=== PATIENT | female | born 1960 | race African-American/Black ===

== ENCOUNTER 2017-01-02 05:43 | Emergency (ER) | payer OTHER ==
[~2017-01-02] VITALS: Ht 167.6 cm; Wt 88.8 kg
[~2017-01-02 05:43] MED LIST: BENZ100 PO; COZA100T PO; NIFE20CA PO; OSEL75 PO
[2017-01-02 05:50] VITALS: BP 155/85; PULSE 93; RESP 20; TEMP 98.6; O2SAT 100
--- NOTE | 2017-01-02 06:02 | PD ---
HPI Chief Complaint: fever Time Seen by Provider: 06:01 Travel History International Travel<30 days: No Contact w/Intl Traveler<30days: No Traveled to known affect area: No History of Present Illness HPI 56-year-old female came to the emergency room with history of sores inside her mouth, feeling hot and cold and body aches for past 2-3 days. Her MAXIMUM TEMPERATURE was 101. Patient was afebrile in triage. No history of nausea vomiting. No history of diarrhea. She has been trying to keep herself hydrated but the sores in her mouth are painful. 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 No history of cough. Patient has been taking Tamiflu but her symptoms have not improved. [facility] Past Medical History Narrative Medical List of her past medical, surgical, social and family history is reviewed from the nursing note. Blood Disorders: No Anxiety: Yes Depression: No Cancer: No Cardiovascular Problems: Yes Diminished Hearing: No Endocrine: No Gastrointestinal Disorders: Yes GERD: Yes Genitourinary: No Hypertension: Yes Immune Disorder: No Implanted Vascular Access Dvce: No Musculoskeletal: No Neurologic: No Psychiatric: Yes Reproductive: No Respiratory: No Menopausal: Yes Tubal Ligation: Yes Past Surgical History Cardiac Surgery: Yes (ABLATION FOR A FIB) Section: Yes Gynecologic Surgery: Yes (C-SECT AND TUBAL LIGATION) Other Surgery: Yes Social History Alcohol Use: No Tobacco Use: No Substance Use: No Allergies-Medications (Allergen,Severity, Reaction): Coded Allergies: No Known Allergies (Verified Allergy, Unknown, 01/02/17) Comments No known drug allergies Reported Meds & Prescriptions Reported Meds & Active Scripts Active Reported Nifedipine 20 Mg Cap 90 Mg PO DAILY Losartan (Losartan Potassium) 100 Mg Tab 100 Mg PO DAILY Narrative Medication List of her home medications reviewed from the nursing note. Review of Systems Except as stated in HPI: all other systems reviewed are Neg General / Constitutional: Positive: Fever, Chills HENT: Positive: Other (mouth sores) Musculoskeletal: Positive: Myalgias Physical Exam Narrative GENERAL: Awake, alert, moderate distress SKIN: Focused skin assessment warm/dry. HEAD: Atraumatic. Normocephalic. EYES: Pupils equal and round. No scleral icterus. No injection or drainage. ENT: No nasal bleeding or discharge. Dry mucous membrane and coated tongue. Vesicle on the mucosal surface of the upper lip adjacent to the incisor NECK: Trachea midline. No JVD. CARDIOVASCULAR: Regular rate and rhythm. No murmur appreciated. RESPIRATORY: No accessory muscle use. Clear to auscultation. Breath sounds equal bilaterally. GASTROINTESTINAL: Abdomen soft, non-tender, nondistended. Hepatic and splenic margins not palpable. MUSCULOSKELETAL: No obvious deformities. No clubbing. No cyanosis. No edema. NEUROLOGICAL: Awake and alert. No obvious cranial nerve deficits. Motor grossly within normal limits. Normal speech. PSYCHIATRIC: Appropriate mood and affect; insight and judgment normal. Data Data Last Documented VS Orders Orders Influenzae A/B Antigen (01/02/17 06:08) Complete Blood Count With Diff (01/02/17 06:08) Basic Metabolic Panel (Bmp) (01/02/17 06:08) Sodium Chlorid 0.9% 500 Ml Inj (Ns 500 M (01/02/17 06:15) Gvef-Awtt-Qnsm Liq (Magic Mouthwash Adul (01/02/17 09:00) Ed Discharge Order (01/02/17 06:54) Labs Laboratory Tests Test 01/02/17 06:24 White Blood Count 4.0 TH/MM3 Red Blood Count 4.41 MIL/MM3 Hemoglobin 11.9 GM/DL Hematocrit 36.8 % Mean Corpuscular Volume 83.7 FL Mean Corpuscular Hemoglobin 27.0 PG Mean Corpuscular Hemoglobin Concent 32.2 % Red Cell Distribution Width 15.5 % Platelet Count 276 TH/MM3 Mean Platelet Volume 7.8 FL Neutrophils (%) (Auto) 42.9 % Lymphocytes (%) (Auto) 44.4 % Monocytes (%) (Auto) 11.1 % Eosinophils (%) (Auto) 1.0 % Basophils (%) (Auto) 0.6 % Neutrophils # (Auto) 1.7 TH/MM3 Lymphocytes # (Auto) 1.9 TH/MM3 Monocytes # (Auto) 0.4 TH/MM3 Eosinophils # (Auto) 0.0 TH/MM3 Basophils # (Auto) 0.0 TH/MM3 CBC Comment DIFF FINAL Differential Comment Blood Urea Nitrogen 12 MG/DL Creatinine 0.84 MG/DL Random Glucose 108 MG/DL Calcium Level 8.8 MG/DL Sodium Level 137 MEQ/L Potassium Level 3.9 MEQ/L Chloride Level 103 MEQ/L Carbon Dioxide Level 24.7 MEQ/L Anion Gap 9 MEQ/L Estimat Glomerular Filtration Rate 85 ML/MIN MDM Medical Decision Making Medical Screen Exam Complete: Yes Emergency Medical Condition: Yes Medical Record Reviewed: Yes Differential Diagnosis Viral illness, hand foot and mouth disease, influenza, dehydration Narrative Course 6:13 AM awaiting for the blood test results. Patient is given 500 cc of fluid bolus. I will give her some Magic mouthwash as well. 6:53 AM blood test results of back and within acceptable limits. Influenza is negative. I will discharge her home. Procedures EKG Prior to Arrival: No Diagnosis Primary Impression: Viral illness Referrals: Primary Care Physician 3 days Departure Forms: Tests/Procedures, Work Release Enter return to work date: Jan 04, 2017 Additional Instructions: Return to the ER if the condition worsens or any other new concerns. Otherwise follow-up with your primary care next couple days. Drink lots of fluid to keep herself hydrated. Take ibuprofen for pain/fever. Med/Other Pt SpecificInfo: No Change to Meds Disposition: 01 DISCHARGE HOME Condition: Stable Jered García MD Jan 02, 2017 06:02
[2017-01-02] MEDS ORDERED: SODIUM CHLORID 0.9% 500 ML INJ 500 ML IV ONE (06:15)
[2017-01-02 06:41] LABS: AUTOMATED NEUTROPHIL # 1.7 TH/MM3 (1.8-7.7); BASOPHIL % 0.6 % (0.0-2.0); HEMATOCRIT 36.8 % (35.0-46.0); HEMO FLAGS DIFF FINAL; LYMPH % 44.4 % (9.0-44.0); LYMPHOCYTE # 1.9 TH/MM3 (1.0-4.8); MEAN CELL VOLUME 83.7 FL (80.0-100.0); MEAN CORPUSCULAR HGB CONC 32.2 % (32.0-36.0); MONO % 11.1 % (0.0-8.0); NEUT % 42.9 % (16.0-70.0); PLATELET COUNT 276 TH/MM3 (150-450); RED BLOOD COUNT 4.41 MIL/MM3 (4.00-5.30); RED CELL DISTRIBUTION WIDTH 15.5 % (11.6-17.2)
[2017-01-02 06:45] LABS: POTASSIUM 3.9 MEQ/L (3.5-5.1)
[2017-01-02 06:48] LABS: BICARBONATE 24.7 MEQ/L (21.0-32.0)
[2017-01-02] MEDS ORDERED: NIFE20 PO (06:55)
[2017-01-02] MEDS ORDERED: LOSA100T PO (06:55)
[2017-01-02] MEDS ORDERED: NYSTAT/DIPHENHY/LIDO MOUTHWASH (Adult) 120ML SWISH-SWAL SCH (09:00)
== END 2017-01-02 07:11 | disposition home or self-care (01) ==
LOC: PHED 05:43
DX: B34.9 Viral infection, unspecified (principal); I10 Essential (primary) hypertension
CPT/HCPCS: 80048; 85025; 87804; 96360; 99284; J7040